=== PATIENT | male | born 1955 | race Caucasian/White ===

== ENCOUNTER → 2018-06-24 | Outpatient (CLI) | payer BC ==
--- NOTE | 2018-06-24 15:59 | CT ---
EXAMINATION TYPE: CT brain wo con DATE OF EXAM: 06/24/2018 HISTORY: Dizziness and headaches x4 months. CT DLP: 1219 mGycm. Automated Exposure Control for Dose Reduction was Utilized. TECHNIQUE: CT scan of the head is performed without contrast. COMPARISON: None. FINDINGS: There is no acute intracranial hemorrhage or midline shift identified. There is diffuse v entricular and sulcal prominence consistent with diffuse age-related cerebral atrophy. Renteria-white mat ter differentiation is fairly well-maintained. The globes are intact and the visualized sinuses are clear. No suspicious opacification mastoid air cells is present. IMPRESSION: No acute intracranial hemorrhage or midline shift. There is mild diffuse age-related ce rebral atrophy noted.
== END ==
LOC: RADCTMAIN 15:37
PROVIDERS: ATTEND Internal Medicine
DX: G31.1 Senile degeneration of brain, not elsewhere classified (principal)
CPT/HCPCS: 70450

== ENCOUNTER → 2019-10-24 | Outpatient (CLI) | payer BC ==
--- NOTE | 2019-10-25 03:05 | CONS ---
CONSULTATION SOURCE OF CONSULT: 10/24/2019 REASON FOR CONSULTATION: Suspected sleep apnea. This is a very pleasant 63-year-old gentleman who follows with Dr. Valdez as his primary care provider. He has a history of gastroesophageal reflux disease, hyperlipidemia, skin disorder. He presents here today with complaints of difficulty sleeping through the night. He has daytime sleepiness. He nods off quickly throughout the day. He has been told he snores per his . He is restless in bed. He wakes up multiple times throughout the night and has trouble getting back to sleep. He does wake up gasping for air at times. He has restless legs. He feels he has similar symptoms compared to his who does have sleep apnea and utilizes CPAP at home. The patient does have a 20 year history of smoking, however, quit 20 years ago. He has been gaining some weight, no significant amount per him. [place] Sleepiness Scale is 10. PAST MEDICAL HISTORY: Includes gastroesophageal reflux disease, hyperlipidemia, skin disorder. PAST SURGICAL HISTORY: Cholecystectomy. ALLERGIES: AMOXICILLIN. MEDICATIONS ARE: Omeprazole 40 mg daily, Zetia 10 mg daily, doxycycline 100 mg daily, Centrum Silver multivitamin. 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 SOCIAL HISTORY: The patient does have a 20 year smoking history, however, quit 20 years ago. Denies excessive alcohol use or illicit drug use. FAMILY HISTORY: Positive for cardiac disease, hyperlipidemia, CVA, arthritis. REVIEW OF SYSTEMS: 14-point review of system was conducted. All negative other than as mentioned in the HPI. PHYSICAL EXAM: Vital signs revealed blood pressure 91/63, heart rate 74, respirations 14, temperature is 97.8. He is 96% O2 saturation on room air. He is 6 feet 0 inches, 205 pounds. BMI 27.8, neck circumference 17. HEAD: Normocephalic, sclerae anicteric. NECK: Supple. Trachea midline. LUNGS: Clear anterior and posteriorly. Heart is regular S1 and S2. ABDOMEN: Soft, nontender. Bowel sounds are present. There is no peripheral edema. No clubbing. No cyanosis. Peripheral pulses are intact. IMPRESSION: 1. Suspected obstructive sleep apnea in a patient who snores and wakes up with periods of apnea and gasping for air and has excessive daytime sleepiness. 2. Gastroesophageal reflux disease. 3. Hyperlipidemia. 4. Skin disorder. PLAN: The patient's case was reviewed and discussed with Dr. Soira who is recommending a sleep study, possibly a home sleep study on this patient for possible sleep apnea. His [place] score is 10. He does have issues with daytime sleepiness and loud snoring, restless legs and waking up gasping for air. If there is significant sleep apnea with elevated AHI, we will see him again for followup regarding a CPAP machine and subsequent titration studies. He verbalizes understanding and is agreeable to the plan. I, the cosigning physician, performed a history and physical examination on the patient. Lung sounds are clear. O2 saturations 96% on room air. I discussed the assessment and plan of care with my nurse practitioner, Sandy Jansen. I attest the above consultation is dictated by her. ANTWAN / CHASN: [id number] /
== END | disposition home or self-care (01) ==
LOC: SLEEP 14:33
PROVIDERS: ATTEND Internal Medicine Critical Care Medicine
DX: R06.83 Snoring (principal); K21.9 Gastro-esophageal reflux disease without esophagitis; E78.5 Hyperlipidemia, unspecified; L98.9 Disorder of the skin and subcutaneous tissue, unspecified; Z87.891 Personal history of nicotine dependence; Z79.899 Other long term (current) drug therapy; Z88.0 Allergy status to penicillin
CPT/HCPCS: 99211

== ENCOUNTER → 2019-10-30 | Outpatient (CLI) | payer BC ==
--- NOTE | 2019-10-30 07:20 | US ---
EXAMINATION TYPE: US abdomen limited DATE OF EXAM: 10/30/2019 COMPARISON: US 09/24/14 CLINICAL HISTORY: 63-year-old male R74.8 elevated liver enzymes. GB surgically removed TECHNIQUE: Multiple sonographic images of the right upper quadrant are obtained. FINDINGS: EXAM MEASUREMENTS: Liver Length: 15.9 cm Gallbladder: Surgically absent CBD: 5.5 mm Right Kidney: 12.0 x 5.7 x 5.5 cm Pancreas: Partially Obscured by bowel gas. Visualized pancreatic neck shows no gross abnormality. Liver: wnl Gallbladder: Surgically absent Evidence for sonographic Yap's sign: No CBD: wnl given postcholecystectomy status Right Kidney: wnl IMPRESSION: Status post cholecystectomy. No biliary ductal dilatation. Suboptimal visualization of the pancreas. Otherwise, no specific abnormality seen.
== END | disposition home or self-care (01) ==
LOC: RADUSWWP 06:48
PROVIDERS: ATTEND Internal Medicine
DX: R74.8 Abnormal levels of other serum enzymes (principal); Z90.49 Acquired absence of other specified parts of digestive tract
CPT/HCPCS: 76705

== ENCOUNTER → 2022-02-23 | Outpatient (CLI) | payer MEDICARE ==
--- NOTE | 2022-02-24 04:17 | MR ---
EXAMINATION TYPE: MR lumbar spine wo con DATE OF EXAM: 02/23/2022 COMPARISON: None HISTORY: RADICULOPATHY, LUMBAR REGION, pain x2 months Multiplanar multiecho imaging of the lumbar spine with no contrast. There is a 2 mm anterior subluxation of L4 in relation L5. There is mild decreased signal in the disk s throughout the lumbar spine. There is facet arthropathy and posterior disc bulging at L4-5. There i s moderately severe L4-5 bony spinal stenosis. No significant stenosis seen at the other levels of th e lumbar spine. There is mild posterior disc bulging seen at L3-4 and L1-2 and T12-L1. There is no lumbar paraspinal mass. The visualized sacroiliac joints appear intact. No focal bone caryl truction. IMPRESSION: There is moderately severe spinal stenosis at L4-5 related to a degenerative first-degree spondylolis thesis with posterior disc bulging and extensive facet arthropathy with ligamentum flavum thickening. Spondylotic changes at the other levels of the lumbar spine without significant spinal stenosis.
== END | disposition home or self-care (01) ==
LOC: RADMRIMAIN 08:58
PROVIDERS: ATTEND Family Medicine
DX: M48.061 Spinal stenosis, lumbar region without neurogenic claudication (principal); M47.26 Other spondylosis with radiculopathy, lumbar region
CPT/HCPCS: 72148

== ENCOUNTER → 2022-03-25 | Day surgery (SDC) | payer MEDICARE ==
[2022-03-24 10:07] VITALS: BMI 26.4
[~2022-03-25] MED LIST: LACTATED RINGERS 1,000 ML IV SCH; PROPOFOL 10 MG/ML 20 ML VIAL IV ONE
--- NOTE | 2022-03-25 07:38 | P.GSHP ---
History of Present Illness H&P Date: 03/25/22 CHIEF COMPLAINT: Colon screen HISTORY OF PRESENT ILLNESS: The patient is a 66-year-old male who presents for colon screen. Lower endoscopy was offered for further evaluation and management. PAST MEDICAL HISTORY: Please see list. PAST SURGICAL HISTORY: Please see list. MEDICATIONS: Please see list. ALLERGIES: Please see list. SOCIAL HISTORY: No illicit drug use FAMILY HISTORY: No reports of Crohn disease or ulcerative colitis. REVIEW OF ORGAN SYSTEMS: CONSTITUTIONAL: No reports of fevers or chills. PHYSICAL EXAM: VITAL SIGNS: Stable GENERAL: Well-developed pleasant in no acute distress. HEENT: No scleral icterus. Extraocular movements grossly intact. Moist buccal mucosa. NECK: Supple without lymphadenopathy. CHEST: Unlabored respirations. Equal bilateral excursions. CARDIOVASCULAR: Regular rate and rhythm. Distal 2+ pulses. ABDOMEN: Soft, nontender, nondistended. MUSCULOSKELETAL: No clubbing, cyanosis, or edema. ASSESSMENT: 1. Colon screen. PLAN: 1. Recommend proceeding with a lower endoscopy Past Medical History Past Medical History: GERD/Reflux, Sleep Apnea/CPAP/BIPAP Additional Past Medical History / Comment(s): low BP with dizziness. History of Any Multi-Drug Resistant Organisms: None Reported Past Surgical History: Cholecystectomy, Orthopedic Surgery Additional Past Surgical History / Comment(s): knee x2. LAP TARYN 09/27/14. COLONOSCOPY Past Anesthesia/Blood Transfusion Reactions: No Reported Reaction Smoking Status: Former smoker - Past Family History Sister(s) Family Medical History: Deep Vein Thrombosis (DVT) Medications and Allergies Home Medications Medication Instructions Recorded Confirmed Type Acetaminophen Tab [Tylenol] 1 tab PO Q6H 09/24/14 03/24/22 History Omeprazole [PriLOSEC] 40 mg PO AC-BRKFST #90 cap 10/24/14 03/24/22 Rx Allergies Allergy/AdvReac Type Severity Reaction Status Date / Time atorvastatin calcium AdvReac joint/muscle Verified 03/24/22 09:52 [From Lipitor] pain
[2022-03-25 08:46] VITALS: RESP 16; TEMP 97.1
--- NOTE | 2022-03-25 09:23 | P.PCN ---
Date of Procedure: 03/25/22 Description of Procedure: PREOPERATIVE DIAGNOSIS: Colonoscopy screening. POSTOPERATIVE DIAGNOSIS: Colonoscopy screening. Diverticulosis, scattered. OPERATION: Colonoscopy to the cecum, ileocecal valve and appendiceal orifice. SURGEON: Mariel Ledezma MD. ANESTHESIA: MAC. INDICATIONS: The patient is a 66-year-old female who presents for colonoscopy screening. Benefits and risks were described and informed consent was obtained. DESCRIPTION OF PROCEDURE: The patient had undergone Sutab prep. The patient had been brought into the operating room and laid in the left lateral decubitus position. After adequate intravenous sedation, the rectum was examined with 2% lidocaine jelly. No external hemorrhoids were encountered. The rectal tone was within normal limits. No lesions were palpated in the rectal vault. An Olympus colonoscope was advanced until the cecum, ileocecal valve and appendiceal orifice were clearly viewed. The prep was good. Moderate sigmoid diverticulosis was encountered. No colonic polyps were found. No evidence of focal colitis was found. Retroflexion of the scope demonstrated grade 1 internal hemorrhoids without active bleeding or inflammation. The colon was desufflated. The patient had tolerated the procedure well. Withdrawal time was over 6 minutes. FINDINGS: Aronchick preparation quality scale 2 (1-5) Internal hemorrhoids, grade 1 No external prolapsed hemorrhoids. No arteriovenous malformations. No adenomatous polyps. No focal colitis. Moderate sigmoid diverticulosis RECOMMENDATIONS: Lower endoscopy in 10 2031 Plan - Discharge Summary Discharge Rx Participant: Yes New Discharge Prescriptions: Continue Acetaminophen Tab [Tylenol] 1 tab PO Q6H Omeprazole [PriLOSEC] 40 mg PO AC-BRKFST #90 cap Discharge Medication List Acetaminophen Tab [Tylenol] 1 tab PO Q6H 09/24/14 [History] Omeprazole [PriLOSEC] 40 mg PO AC-BRKFST #90 cap 10/24/14 [Rx] Follow up Appointment(s)/Referral(s): Mariel Ledezma MD [STAFF PHYSICIAN] - As Needed Patient Instructions/Handouts: Diverticulosis Diet (GEN), Diverticulosis (GEN), *Surgery [facility] - (Anesthesia) Endoscopy Discharge Instructions Activity/Diet/Wound Care/Special Instructions: Repeat colonoscopy in 10 years2031 Discharge Disposition: HOME SELF-CARE
[2022-03-25 09:36] VITALS: BP 124/72; PULSE 68
== END | disposition home or self-care (01) ==
LOC: ORWHC2ENDO 07:57
PROVIDERS: ATTEND Surgery Plastic and Reconstructive Surgery
DX: Z12.11 Encounter for screening for malignant neoplasm of colon (principal); K57.30 Diverticulosis of large intestine without perforation or abscess without bleeding; K64.0 First degree hemorrhoids; K21.9 Gastro-esophageal reflux disease without esophagitis; G47.33 Obstructive sleep apnea (adult) (pediatric); R03.1 Nonspecific low blood-pressure reading; Z90.49 Acquired absence of other specified parts of digestive tract; Z98.890 Other specified postprocedural states; Z87.891 Personal history of nicotine dependence; Z82.49 Family history of ischemic heart disease and other diseases of the circulatory system; Z79.899 Other long term (current) drug therapy; Z88.8 Allergy status to other drugs, medicaments and biological substances
CPT/HCPCS: J2704; G0121

== ENCOUNTER → 2022-09-18 | Outpatient (CLI) | payer MEDICARE, OTHER | END | disposition home or self-care (01) | LOC: LABPAT 09:51 | PROVIDERS: ATTEND Orthopaedic Surgery | DX: Z01.812 Encounter for preprocedural laboratory examination (principal); M43.16 Spondylolisthesis, lumbar region; M48.061 Spinal stenosis, lumbar region without neurogenic claudication; Z22.322 Carrier or suspected carrier of Methicillin resistant Staphylococcus aureus | CPT/HCPCS: 87070 ==

== ENCOUNTER 2022-09-29 10:54 | Inpatient (IN) | payer MEDICARE, OTHER ==
[2022-09-24 16:11] VITALS: BMI 25.4
--- NOTE | 2022-09-28 14:11 | P.HPOR ---
History of Present Illness H&P Date: 09/18/22 .D:Date: 09/18/22 : 10:34am .T:Title: [facility] History and Physical Date of :[birth year] Age: 66 year Height: 6'1" Weight: 198lbs BMI: 26.12 kg/m2 Occupation: Retired VAS: 1 CHIEF COMPLAINT: Pre-operative review of planned lumbar (L4-L5) Decompression and Fusion DOI:Chronic DOS: None Duration of current treatment regiment: >3 months HISTORY : Xrays No new xrays taken in office Trauma or injury No Work-Related No Pain description aching, sharp. Location posterior diffuse Patient notes that their pain radiates to bilateral lower extremities Activity Modification yes Hand Dominance right TREATMENTS COMPLETED: 6 weeks of PT completed? Month and Year of last PT date? 02/2022 Yes How many sessions? 16 Did it help? No Physician recommended home exercise completed? Duration of HEP course: Current yes Patient has trialed the physician directed home exercise program for (without) relief of their symptoms. Medications yes List: Aleve, Tylenol both without relief of his symptoms. Alternative interventions Chiropractic: yes, for approximately 1 month without relief. Massage therapy: No R.I.C.E: yes heat and ice without relief Brace: No inversion table with temporary relief. Injections No RFA: No SUBJECTIVE: Mr. Mejia returns to the office for a pre-operative recheck of their planned lumbar (L4-L5) Decompression and Fusion. Patient reports no improvements to his symptoms since the time of the last appointment. Patient continues to report increasing lumbar pain with no new known injury or trauma to indicate an exact onset of their symptoms. In addition to their lumbar pain, they do report that it radiates into the bilateral lower extremities (right worse than left), associatedwithdiffuse numbness and tingling through the L4-L5 dermatomal distribution. With this the patient does report somewhat transient left lower extremity symptoms but the right lower extremity symptoms are constant. Overall the patient has seen a progressive increase in symptoms since their onset. Mr. Mejia symptoms are exacerbated with standing, ambulation, flexion/extension/twisting, and any high impact movements like walking up and down stairs, due to this they notes that it is increasingly difficult for Mr. Mejia to complete many of their daily tasks. Patient is having severe sleep disturbances as well due to their ongoing pain and associated symptoms. Regarding treatments, the patient has previously trialed all abovementioned treatment modalities without relief of his symptoms. Patient denies trialing any other modalities at this time. For their symptoms, the patient has been taking Aleve and Tylenol all without relief of his symptoms. Otherwise the patient denies any f/c/sob/cp, no incision concerns, no bladder or bowel retention/incontinence, no perineal numbness/tingling, and ambulates independently. HPI: Mr. Mejia last returned to the office on 08/12/22 for a recheck of their low back pain and to further discuss his future treatment course. Patient reports increasing lumbar pain with no new known injury or trauma to indicate an exact onset of their symptoms. In addition to their lumbar pain, they do report that it radiates into the bilateral lower extremities (right worse than left), associatedwithdiffuse numbness and tingling through the L4-L5 dermatomal distribution. With this the patient does report somewhat transient left lower extremity symptoms but the right lower extremity symptoms are constant. Overall the patient has seen a progressive increase in symptoms since their onset. Mr. Mejia symptoms are exacerbated with any standing, ambulation, or high impact movements like walking up and down stairs, due to this they notes that it is increasingly difficult for Mr. Mejia to complete many of their daily tasks. Patient is having severe sleep disturbances as well due to their ongoing pain and associated symptoms. Regarding treatments, the patient has previously trialed all abovementioned treatment modalities without lasting relief of his symptoms. Patient denies trialing any other modalities at this time. Otherwise the patient denies any f/c/sob/cp, no bladder or bowel retention/incontinence, no perineal numbness/tingling, and ambulates independently. Mr. Mejia last presented to the office on 05/25/2022 for an evaluation of their lumbar pain. Patient reports a aching, sharp lumbar pain ongoing for many years that has exacerbated over the last year with no known injury or trauma to indicate an exact onset of their symptoms. In addition to their lumbar pain, they do report that it radiates into the bilateral buttocks and lower extremities, associatedwith numbness and tingling through the legs into the feet. Overall the patient has seen a progressive increase in symptoms since their onset. Mr. Mejia symptoms are exacerbated with prolonged standing and sitting, due to this they notes that it is increasingly difficult for Mr. Mejia to complete many of their daily tasks. Patient is having moderate sleep disturbances as well due to their ongoing pain and associated symptoms. Regarding treatments, the patient has previously trialed all abovementioned treatment modalities without any lasting relief of his symptoms. Patient denies trialing any other modalities at this time. For their symptoms, the patient has been taking Aleve and Tylenol both without any relief of his symptoms. Otherwise the patient denies any f/c/sob/cp, no incision concerns, no bladder or bowel retention/incontinence, no perineal numbness/tingling, and ambulates independently. The patients' past social, medical, family, surgical history, as well as review of systems, have been reviewed. Please refer to the Neurosurgery History and Physical form that has been scanned in to our electronic medical record system. 16 points review of systems completed and as stated in HPI, all other systems reviewed are negative. Social History: Reviewed, see appropriate section of the chart for details. P3 Social History: Smoking: none P3 Alcohol Amount: 0-1 drinks/wk Family History: Reviewed, see appropriate section of the chart for details. P2 Past Medical History: Reviewed, see appropriate section of the chart for details. [id number] Medications: Rx: Aleve 220 mg capsule Ref: 0 Rx: Centrum Ref: 0 Rx: ezetimibe 10 mg tablet Ref: 0 Rx: omeprazole 20 mg tablet,delayed release Ref: 0 Rx: TylenoL 325 mg capsule Ref: 0 Rx: Vitamin D3 Ref: 0 PHYSICAL EXAMINATION: General: Awake, alert, appropriate for age, in no acute distress. HEENT: No unusual neck masses around region of lateral neck triangle, thyroid, supraclavicular groove Heart: Regular rate and rhythm, normal S1, S2 and no murmur/gallop. Lungs: Clear to auscultation bilaterally with no use of accessory muscles. Extremities: Skin warm and dry without acute lesions, coloration, temperature, skin intact, no tenderness or erythema Integument: Hairy patches: ABSENT Dorsal skin dimples: ABSENT Cafe au lait spots: ABSENT Surgical incisions: NONE Palpation: Please see Pain drawing on Intake sheet for further detail. Midline spinal tenderness: Yes, through lumbar region E6 Cervical Tenderness: No E6 Paralumbar tenderness: No E6 Parathoracic tenderness: No E6 Buttocks tenderness: Yes, bilaterally E6 Sacroiliac Tenderness: No POSTURAL and MUSCULO-SKELETAL EVALUATION: Coronal Balance: NEUTRAL Recumbent testing: Patient is able to lay flat on back Sagittal Balance: NEUTRAL Shoulder Profile: LEVEL Pelvic Girdle: LEVEL Neck ROM: UNRESTRICTED Lumbar ROM: RESTRICTED Shoulder ROM: Symmetrical Hip ROM: Symmetrical Knee ROM: Symmetrical Hands: Normal appearance, symmetrical Feet: Normal appearance, Symmetrical VASCULAR STATUS : LEFT RIGHT Wrist Pulses INTACT INTACT Pedal Pulses (Dors. pedis & post.tibialis) INTACT INTACT Color NORMAL NORMAL Edema Absent Absent NEUROLOGIC EXAMINATION: Mental Status:Awake and alert, fully oriented, with normal attention, concentration and memory, and fluent, appropriate speech. Cranial Nerves: I: Olfactory not tested. II: Visual acuity normal, no visual field deficit noted with confrontation. III,IV: Normal pupillary reflexes & intact extraocular movements without nystagmus. V,: Intact symmetrical facial sensation. VII: Intact symmetrical facial motor movement VIII: Hearing intact. IX,X: Intact gag, swallow, & normal voice. XI: Sternocleidomastoid, trapezius function intact. XII: Tongue midline with normal movements. L'hermitte's Sign: Negative / absent Spurling'Sign: Absent bilaterally. Cubital percussion test: Absent bilaterally. Santo-Tinel sign - Carpal region: Absent bilaterally. Straight Leg Raising: Absent bilaterally. Crossed straight leg raise: negative O8 MOTOR EXAM (0-5/5, N/T) UPPER EXTREMITY Shoulder Abduction Biceps Triceps Wrist Extension Hand [employer] Inspector Right 5/5 5/5 5/5 5/5 5/5 5/5 Left 5/5 5/5 5/5 5/5 5/5 5/5 LOWER EXTREMITY Hip Flexion Knee Extension Knee Flexion DF PF EHL FHL Right 5/5 5/5 5/5 4/5 4/5 4/5 5/5 Left 5/5 5/5 5/5 5/5 5/5 5/5 5/5 REFLEXES(0-4/2, NT)Upper Extremity Lower Extremity Right 2 2 Left 2 2 Pathological Reflexes RIGHT LEFT Santo's Absent Absent Clonus Absent Absent Babinski Absent Absent # Indicates mechanical impairment Muscle appearance: Symmetrical, without signs of atrophy or dystrophy. Rectal Tone:Deferred Sensory system (0-4, N/T) Test type RU SHANNAN RL LL Joint-Position 2 2 2 2 Vibration 2 2 2 2 Pain & LT sense 2 2 2 2 Dermatomal Deficit: None None L4-L5 L4-L5 Gait and Functional Evaluation: Ambulatory aids: Independent Romberg's test: Intact bilaterally Toe heel walk / heel-toe walk intact while maintaining satisfactory balance? No Squatting/straightening w/o assistance to a min of 60 degree knee flexion? No Single leg stance: not intact Trendelenburg sign negative bilaterally Hand and finger dexterity intact bilaterally? yes Disdiadochokinesis examination negative bilaterally? yes RADIOGRAPHIC STUDIES: XRay (multiview) taken on 05/25/22 obtained at [facility] of Lumbar,Spine and Pelvis: Images reviewed with the patient. These demonstrate L4-5 Grade I mobile spondylolisthesis with about 3 mm of translation of F/E films. There is pars elongation as well as facet arthropathy from L4-S1. There is well maintained disc height at L5S1. There are no fractures noted. There is spondylosis at L1- 2 with disc height loss. There are no lesions noted. AP pelvis shows level congruent pelvis w/o fracture MRI scan from 02/23/2022 obtained at [facility] of Lumbar Spine: Images reviewed with the patient demonstrate again L4-5 grade I spondylolisthesis that is mobile. There is large disc bulge associated causing severe b/l foraminal stenosis there is a facet cyst posteriorly along with hypertrophy of ligamentum that contribute to severe central stenosis as well. There are boggy facets at L4-5. L5-S1 shows some disc dessication that is moderate. There is minimal stenosis at this level. There is spondylosis from L1-2 with severe disc collapse and likely old HNP that is now a disc osteophyte complex causing mild stenotic features. No fracture. No lesions. Modic endplate changes at levels described. IMPRESSION: It was my pleasure to have seen and examined Arturo. I reviewed the patient's clinical syndrome, physical findings, and imaging studies during the appointment today. It is my impression that the patient has a diagnosis of. 1. L4-L5 Grade 1 spondylolisthesis 2. L4-L5 stenosis 3. Neurogenic claudication 4. bilateral lower extremity radiculopathy I outlined the natural course history without intervention and various interventional options. PLAN: Based on my findings I suggest the following course of action: -I discussed treatment options with the patient, including operative and non-operative options, and they have elected to proceed with the following surgical procedure: lumbar (L4-L5) Decompression and Fusion The indications, risks, benefits, and alternatives to surgery were discussed with the patient and family at length. Specifically (but not limited to) the risks of infection, stiffness, recurrence of symptoms, need for revision surgery, local numbness, neurovascular injury, and blood clots were discussed. The patient's questions were answered.The patient would like to proceed with the surgery. - Advised patient to continue with supplements, health maintenance, and home exercise programs. Patient expressed understanding and will continue with these modalities. Spine Surgery Risk Review Mr. Mejia is presenting for evaluation of low back pain. It was my pleasure to have seen and examined Mr. Mejia. In our visit today we have had a chance to go over subjective complaints, physical examination findings and treatments including the natural course history without intervention and various interventional options. The patients imaging demonstrates: XRay (multiview) taken on 05/25/22 obtained at [facility] Lumbar,Spine and Pelvis: Images reviewed with the patient. These demonstrate L4-5 Grade I mobile spondylolisthesis with about 3 mm of translation of F/E films. There is pars elongation as well as facet arthropathy from L4-S1. There is well maintained disc height at L5S1. There are no fractures noted. There is spondylosis at L1-2 with disc height loss. There are no lesions noted. AP pelvis shows level congruent pelvis w/o fracture MRI scan from 02/23/2022 obtained at [facility] of Lumbar Spine: Images reviewed with the patient demonstrate again L4-5 grade I spondylolisthesis that is mobile. There is large disc bulge associated causing severe b/l foraminal stenosis there is a facet cyst posteriorly along with hypertrophy of ligamentum that contribute to severe central stenosis as well. There are boggy facets at L4-5. L5-S1 shows some disc dessication that is moderate. There is minimal stenosis at this level. There is spondylosis from L1-2 with severe disc collapse and likely old HNP that is now a disc osteophyte complex causing mild stenotic features. No fracture. No lesions. Modic endplate changes at levels described. On physical exam, Mr. Mejia demonstrates severely restricted lumbar ROM with bilateral lower extremity radiculopathy. Furthermore he does demonstrate bilateral lower extremity L4-L5 dermatomal deficit. Overall functional and gait testing is limited due to the severity of his symptoms. I have explained to the patient that as their condition progresses it will cause further neurological deficits and eventual paralysis. Based on the patients imaging, physical exam, and the rapid progression and disabling nature of their symptoms, at this time I recommend surgery in the form of a: lumbar (L4-L5) Decompression and Fusion . I discussed the risk and benefits of this procedure at length with Mr. Mejia. The patient agreed to considered pursuing the procedure abovementioned. Prior to surgery, she should follow up with her PCP (Cardio, ID, IM etc) for clearance. Questions were invited and answered, and the patient wishes to proceed as outlined below. Currently, I am recommendin.lumbar (L4-L5) Decompression and Fusion 2.Follow up with PCP for surgical clearance 3.Review of surgical risks and benefits as well as an educational packet on the proposed surgical procedure. Risks: All surgical procedures come with inherent risks, including those related to positioning, anesthesia, intraoperative findings, and postoperative complications. It is important to understand that surgery does not come with any guarantee of a successful outcome as complications and adverse events are always possible. The patient was given a handout in office today discussing the surgical procedure and risks associated with the intervention, both of which were discussed with the patient. These risks include but are not limited to the following: * Experiencing same, different or even worse symptoms in back, neck, arms, or legs compared to before surgery. Requiring further surgery or other forms of treatment presently or at some time in the future at same or other levels of the intended spine surgery. On an extreme but fortunately relatively rare basis severe complication such as blindness, stroke, heart attack, temporary and/or permanent nerve injury, paralysis, coma, or may occur, sometimes without known explanation. Surgical complications may include but are not limited to risk of infection, fluid accumulation in the surgical dissection site, including a seroma or hematoma, that requires additional surgery, wound drainage, bleeding, new numbness or weakness, vision changes/loss, spinal fluid leakage, non-healing and/or infected incision, headaches, difficulty or inability to swallow, hoarseness, hemopneumothorax, pneumothorax, impotence, retrograde ejaculation, vaginal dryness; injury to nerves, spinal cord, blood vessels, lymphatics or other vital organs (i.e., bowel injury, injury to the great vessels); heterotopic bone formation; complications related to the hardware such as screws, rods, cages including misplaced hardware, device failure, instrumentation at the wrong spine level, hardware fracture/breakage, or hardware loosening; vertebral failure of the spinal column above or below the newly placed hardware; retained surgical instrumentations or devices and the need for further surgery. * Medical risks of the planned spine surgery include but are not limited to generalized Infections to the whole body or local areas outside of the surgical site (sepsis), heart attack, bleeding, anaphylaxis, meningitis, seizure, epilepsy, hearing loss, burn milner, laceration of the head or other areas of the body, bruising, hypersensitivity of the skin, bladder over distension; allergic reaction; shoulder injury related to positioning; fat, blood and air clots to other areas of the body like heart, lungs, brain; failure of internal organs such as lungs, kidneys, liver and excessive bleeding. If blood transfusions are necessary, note that transfusions may cause intolerance reactions such as anaphylaxis or other complex reactions. Despite best efforts, the results of spine surgery might not heal in terms of bone, soft tissues such as skin, fascia, ligaments, and joints. Additionally, in order to achieve best possible results, spine surgery may be carried out beyond the initially planned levels and involve decompression, fusion including insertion of hardware at levels other than the original intended area of surgical interest change some portions of the procedure in order to ensure the best possible outcomes. With spine surgery and spinal fusion, there are different off label uses of instrumentation (devices, implants and hardware) as well as biological substances (bone morphogenic proteins, demineralized bone matrix) as well as using extra bone from allograft sources (i.e. cadaver bone) or autograft (iliac crest bone, ribs, or the spine itself). The patient has been given information about these practices and their inherent risks and benefits. [facility] is an educational center that serves as a training facility for neurosurgical and orthopedic [employer] COUNSELORS and Nursing students. Physician assistants are medically trained surgical providers who function in the outpatient, inpatient, and operating room setting under the direct supervision of the attending surgeon. [facility] has multiple operating rooms with single and overlapping rooms running daily. They currently function under the required guidelines as produced by the [facility] Finance Committee with regards to the overlapping rooms and will continue to comply with changes to this policy as they occur. The requirements include and are complied with as follows: (1) the critical portions of the overlapping rooms will not occur at the same time, (2) the attending physician will be physically present during the critical portions of the procedure and immediately available during the entire case, and (3) a back-up attending is designated should the primary attending not be immediately available. The patient has had a chance to review all the listed information, has been given print outs detailing this information, and has had all his/her questions answered to their satisfaction. It was my pleasure to have seen and examined Mr. Mejia. In our visit today we have had a chance to go over my understanding of our patient's current condition, the natural course history without intervention and various interventional options. Questions were invited and answered, and the patient wishes to proceed as outlined above. I have seen and examined the patient for 25 minutes and we have spent more than 50% of the time in repeat and detailed counseling about the patient's condition, its natural course history with out and as much as can be predicted with surgery and re-review of various surgical treatment options. In conclusion, Mr. Mejia requested we proceed with the above suggested surgery and are willing to accept risks and limitations of the suggested surgery as nature of the disease process and our best attempts at treatment for the condition. Thank you again for allowing us to be part of your patient's care. Please don't hesitate to contact me if you have any further questions. Signed and authenticated by: Follow-up: 2 weeks post-op Patient Education: (Informational booklet, instructions, etc) given at today's appointment: Yes .ED:Patient Education: Y Plan at next visit: review potentia surgical intervention Medications Reviewed: YES In our visit today Mr. Mejia and I have had a chance to go over my understanding of the patient's current condition, the natural course history without intervention and various interventional options. Questions were invited and answered, and the patient wishes to proceed as outlined above. I will be sure to keep you updated afterMr. Mejia returns here for further follow-up. Thank you again for your referral. Please do not hesitate to contact me if you have any further questions. Signed and authenticated by: Renzo Carpenter [facility] [id number] [place] [address] This message is confidential, intended only for the named recipient(s) and may contain information that is privileged or exempt from disclosure under applicable law. If you are not the intended recipient(s), you are notified that the dissemination, distribution or copying of this information is strictly prohibited. If you received this message in error, please notify the sender then delete this message. Patient verbalizes understanding of the information discussed. The above note was initiated by Renzo Michel, physician recording health assistant for Dr. Renzo Rios. This note has been reviewed by Dr. Rios, who has made his personal changes and impressions for this document. # SIGNED BY Renzo Rios (GOO)09/21/2022 04:37PM Past Medical History Past Medical History: GERD/Reflux Additional Past Medical History / Comment(s): Low BP/dizziness. History of Any Multi-Drug Resistant Organisms: None Reported Past Surgical History: Cholecystectomy, Orthopedic Surgery Additional Past Surgical History / Comment(s): Bilateral knee surgery, colonoscopy. Past Anesthesia/Blood Transfusion Reactions: No Reported Reaction Past Psychological History: No Psychological Hx Reported Smoking Status: Former smoker Past Alcohol Use History: Occasional Additional Past Alcohol Use History / Comment(s): Quit smoking 20 yrs ago. Additional Drug Use History / Comment(s): CBD oil. - Past Family History Sister(s) Family Medical History: Pulmonary Embolus Medications and Allergies Home Medications Medication Instructions Recorded Confirmed Type Ascorbic Acid [Vitamin C] 1,000 mg PO BID 09/24/22 09/24/22 History Cholecalciferol [Vitamin D3 (125 125 mcg PO DAILY 09/24/22 09/24/22 History Mcg = 5000 Iu)] Ezetimibe [Zetia] 10 mg PO DAILY 09/24/22 09/24/22 History Omeprazole Magnesium [PriLOSEC OTC] 20 mg PO DAILY PRN 09/24/22 09/24/22 History Zinc Gluconate [Zinc] 50 mg PO DAILY 09/24/22 09/24/22 History Allergies Allergy/AdvReac Type Severity Reaction Status Date / Time atorvastatin calcium AdvReac joint/muscle Verified 09/24/22 16:01 [From Lipitor] pain Penicillins AdvReac Abdominal Verified 09/24/22 16:01 Pain Physical Examination Osteopathic Statement: *. No significant issues noted on an osteopathic structural exam other than those noted in the History and Physical/Consult.
[~2022-09-29 10:54] MED LIST changes: +ACETAMINOPHEN TAB 500 MG TAB PO PRN; +DEXAMETHASONE SOD PHOSPHATE 4 MG/ML 1 ML VIAL IV ONE; +GABAPENTIN 300 MG CAP PO PRN; +HYDROmorphone 0.5 MG/0.5 ML SYRINGE IVP PRN; -LACTATED RINGERS 1,000 ML IV SCH; +LIDOCAINE 1% (10MG/ML) FOR IV START INTRADERMA PRN; +MIDAZOLAM 2 MG/2 ML VIAL IV PRN; +ONDANSETRON 4 MG/2 ML VIAL IVP ONE; +ONDANSETRON 4 MG/2 ML VIAL IVP PRN; -PROPOFOL 10 MG/ML 20 ML VIAL IV ONE; +TRANEXAMIC ACID IN NACL,ISO-OS 1,000 MG in SALINE 1 100ML.BAG IVPB PRN
[2022-09-29] MEDS: LACTATED RINGERS 1,000 ML IV SCH ×2 (11:55→12:11)
[2022-09-29] MEDS ORDERED: SUCCINYLCHOLINE CHLORIDE 200 MG/10 ML VIAL IV ONE (14:03)
[2022-09-29] MEDS ORDERED: KETAMINE 10 MG/ML 20 ML VIAL ONE (14:03)
[2022-09-29] MEDS ORDERED: LIDOCAINE 2% INJ 20 MG/ML (2 ML VIAL) ONE (14:03)
[2022-09-29] MEDS ORDERED: MIDAZOLAM 2 MG/2 ML VIAL ONE (14:03)
[2022-09-29] MEDS ORDERED: PHENYLEPHRINE-0.9% NACL SYG 1,000 MCG/10 ML SYRINGE ONE (14:03)
[2022-09-29] MEDS ORDERED: ePHEDrine 50 MG/ML 1 ML VIAL ONE (14:03)
[2022-09-29] MEDS ORDERED: PROPOFOL 10 MG/ML 20 ML VIAL IV ONE (14:03)
[2022-09-29] MEDS ORDERED: TRANEXAMIC ACID IN NACL,ISO-OS 1,000 MG/100 ML BAG ONE (14:03)
[2022-09-29] MEDS ORDERED: WATER FOR INJECTION, STERILE 10 ML VIAL IV ONE (14:03)
[2022-09-29] MEDS ORDERED: GLYCOPYRROLATE 0.2 MG/ML 2 ML VIAL ONE (14:03)
[2022-09-29] MEDS ORDERED: NEOSTIGMINE 1 MG/ML 10 ML VIAL ONE (14:03)
[2022-09-29] MEDS ORDERED: fentaNYL (PF) 50 MCG/ML 2 ML AMP ONE (14:03)
[2022-09-29] MEDS ORDERED: ROCURONIUM 10 MG/ML (5 ML VIAL) IV ONE (14:03)
[2022-09-29] MEDS ORDERED: THROMBIN (BOVINE) 5,000 UNIT VIAL TOPICAL ONE (14:08)
[2022-09-29] MEDS ORDERED: GELATIN SPONGE,ABSORB (LARGE) 1 EACH SPONGE TOPICAL ONE (14:08)
[2022-09-29] MEDS ORDERED: BUPIVACAIN-EPI 0.25%-1:200,000 30 ML VIAL SQ ONE (14:08)
[2022-09-29] MEDS ORDERED: ceFAZolin 3,000 MG in SODIUM CHLORIDE 0.9% IRRIGATIO 3,000 ML IRRIGATION ONE (14:50)
[2022-09-29] MEDS ORDERED: GENTAMICIN 80 MG in SODIUM CHLORIDE 0.9% IRRIGATIO 3,000 ML IRRIGATION ONE (14:50)
[2022-09-29] MEDS ORDERED: LACTATED RINGERS 1,000 ML IV ONE ×2 (15:13→17:31)
[2022-09-29] MEDS ORDERED: HYDROmorphone 0.5 MG/0.5 ML SYRINGE IVP PRN (17:11)
[2022-09-29] MEDS ORDERED: SENNOSIDES-DOCUSATE SODIUM 1 EACH TAB PO PRN (17:11)
[2022-09-29] MEDS ORDERED: HYDROmorphone 1 MG/ML 1 ML SYRINGE IVP PRN (17:11)
[2022-09-29] MEDS ORDERED: ONDANSETRON 4 MG/2 ML VIAL IVP PRN (17:11)
[2022-09-29] MEDS ORDERED: CYCLOBENZAPRINE 5 MG TAB PO PRN (17:11)
[2022-09-29] MEDS ORDERED: MAGNESIUM HYDROXIDE 2,400 MG/10 ML CUP PO PRN (17:11)
--- NOTE | 2022-09-29 18:38 | FL ---
Intraoperative/procedural fluoroscopic services were provided. Total fluoroscopy time is 47 seconds w ith a total of 0 submitted images to PACS. Please see the operative/procedural note for further detai ls.
--- NOTE | 2022-09-29 20:15 | CT ---
EXAMINATION TYPE: CT lumbar spine wo con DATE OF EXAM: 09/29/2022 COMPARISON: None HISTORY: post op lumbar fusion. CT DLP: 1299.6 mGycm Automated exposure control for dose reduction was used. Images obtained from the level of T10-S4 vertebra with no contrast. The lumbar vertebrae have normal alignment. There is kishan and screws fusing posteriorly the lumbar spi ne at L4-5. There is disc prosthesis at L4-5. Components appear in good position. Exam limited by met al artifact. There is bilateral lower lobe pulmonary patchy airspace infiltrates and atelectasis. No lumbar paraspinal mass. There is posterior skin carlos. No pathologic fluid collection. There is laminectomy defect. The sacroiliac joints are intact. IMPRESSION: Postsurgical changes. No complicating process seen.
[2022-09-29] MEDS: HYDROcodone/APAP 5-325MG 1 EACH TAB PO PRN (20:16)
[2022-09-29] MEDS: GABAPENTIN 300 MG CAP PO SCH (21:38)
[2022-09-30] MEDS: HYDROcodone/APAP 5-325MG 1 EACH TAB PO PRN ×2 (02:14→19:49)
[2022-09-30 05:27] LABS: Basophils % (A) 0 %; Eosinophils % (A) 0 %; HCT 39.8 % (39.0-53.0); HGB 13.1 gm/dL (13.0-17.5); Lymphocytes # (A) 1.6 k/uL (1.0-4.8); Lymphocytes % (A) 11 %; MCH 28.9 pg (25.0-35.0); MCV 87.6 fL (80.0-100.0); Mean Platelet Volume 6.8; Monocytes # (A) 0.8 k/uL (0-1.0); Monocytes % (A) 5 %; Neutrophils % (A) 82 %; Platelet Count 244 k/uL (150-450); RBC 4.54 m/uL (4.30-5.90); RDW 13.3 % (11.5-15.5); WBC 14.6 k/uL (3.8-10.6)
[2022-09-30 05:37] LABS: African American GFR (CKD) >90 (>60 ml/min/1.73 sqM); Anion Gap 4 mmol/L; Blood Urea Nitrogen 22 mg/dL (9-20); Calcium 8.2 mg/dL (8.4-10.2); Carbon Dioxide 29 mmol/L (22-30); Chloride 102 mmol/L (98-107); Glucose 108 mg/dL (74-99); Non-African American GFR(CKD) >90 (>60 ml/min/1.73 sqM); Potassium 4.3 mmol/L (3.5-5.1); Sodium 135 mmol/L (137-145)
[2022-09-30] MEDS: GABAPENTIN 300 MG CAP PO SCH ×2 (08:18→19:49)
[2022-09-30] MEDS: EZETIMIBE 10 MG TAB PO SCH (08:18)
[2022-09-30] MEDS: HYDROcodone/APAP 7.5-325MG 1 EACH TAB PO PRN (08:18)
[2022-09-30] MEDS: CHOLECALCIFEROL 125 MCG (5000 IU) TABLET PO SCH (08:19)
[2022-09-30] MEDS: ZINC SULFATE 220 MG CAP PO SCH (08:19)
[2022-09-30] MEDS: ASCORBIC ACID 500 MG TAB PO SCH ×2 (08:19→19:49)
--- NOTE | 2022-09-30 08:35 | P.PN ---
Subjective Progress Note Date: 09/30/22 Principal diagnosis: Lumbar stenosis Spondylolisthesis L4 onto L5 Patient seen and examined this morning. Patient was resting in bed. He has complaint of increased pain with activity. Medications will be reviewed. Surgical incision is clean dry and intact. Hemovac is present and patent, output of 110 mL overnight. Patient has not been up since procedure. Informed patient that physical therapy will be in to work with him today. He should be up to the chair with all meals. Patient verbalizes understanding. Patient denies numbness or tingling to bilateral lower extremities. Nino catheter may be discontinued today. Patient has been afebrile, denies nausea/vomiting, or chest pain Objective - Vital Signs Vital signs: Vital Signs Temp 97.9 F 09/30/22 07:15 Pulse 92 09/30/22 07:15 Resp 18 09/30/22 07:15 BP 94/60 09/30/22 07:15 Pulse Ox 94 L 09/30/22 07:15 FiO2 Intake & Output 09/29/22 09/30/22 09/30/22 18:59 06:59 18:59 Intake Total 3402 Output Total 650 935 Balance 2752 -935 Weight 88.2 kg 88.2 kg Intake: IV 3402 Output: Drainage 110 Back 110 Urine 250 825 Estimated Blood Loss 400 Other: Voiding Method Indwelling Catheter - Exam Physical Examination General: The patient is awake and alert, in no acute distress Skin: Skin is warm and dry with no obvious rashes or lesions. Hairy patches absent, no dorsal skin dimples, no cafe au lait spots. Surgical incision to lumbar, dressing clean dry and intact. Hemovac present and patent. Eye: Pupils are equal, round and reactive to light, extra-ocular movements are intact; there is normal conjunctiva bilaterally. Neck: The neck is supple, there is no tenderness and ROM intact. Cardiovascular: There is a regular rate and rhythm. No murmur, rub or gallop is appreciated. Respiratory: Lungs are clear to auscultation, respirations are non-labored, breath sounds are equal. Gastrointestinal: Soft, non-distended, non-tender abdomen. Back: There is no tenderness to palpation in the midline, paralumbar, parathoracic or buttocks region. There is no obvious deformity . Musculoskeletal: ROM limited secondary to pain and stiffness from surgical procedure. Muscle strength in all major muscle groups of bilateral upper extremities 5/5, bilateral lower extremities 4/5. Neurological: CN 2-12 intact. There are no obvious motor or sensory deficits. Movement and coordination equal and intact. Sensory exam to light touch intact C5-T1 and intact from L2-S1. Reflexes 2/4 in bilateral upper and lower extremities. Negative Hoffmans, babinski, and clonus signs. Psychiatric: Cooperative, appropriate mood & affect, normal judgment. - Labs CBC & Chem 7: 09/30/22 04:48 09/30/22 04:48 Labs: Abnormal Lab Results - Last 24 Hours (Table) 09/30/22 09/30/22 Range/Units 04:48 04:48 WBC 14.6 H (3.8-10.6) k/uL Neutrophils # 12.0 H (1.3-7.7) k/uL Sodium 135 L (137-145) mmol/L BUN 22 H (9-20) mg/dL Glucose 108 H (74-99) mg/dL Calcium 8.2 L (8.4-10.2) mg/dL Assessment and Plan Assessment: Postop day 1 L4-L5 PLIF Lumbar stenosis Spondylolisthesis L4 onto L5 Plan: -Appreciate speech correction consultant and team management. -Activity: Ambulate QID, OOB all meals, up and about, limit lifting bending twisting to less than 5 lbs. Use walker or cane if needed for stability. -Daily PT/OT, increase ambulation strength and balance. -LSO Brace when up and about, not needed in bed or chair -Pain control: Adequate at this time -Meds: reviewed -GI ppx: senna, Miralax -DC nino when up and about, bedside commode if needed -DVT PPX: OK to restart Heparin tonight -Hygiene: Shower today. Maintain dressing clean and dry. Meticulous cleaning after BMs away from the incision site -Drains: Maintain for now. DC later today pending out put and PT -Encourage IS 10x/hr -Dispo: Anticipate discharge home tomorrow with homecare *I reviewed and discussed this case with my attending Dr. Rios, whom has reviewed this chart and films and is in agreement with assessment and plan of care as outlined above. I have personally seen and examined the patient, performed the documentation and the assessment and plan as written. Number of minutes spent on the visit: 20m.
[2022-09-30] MEDS ORDERED: PANTOPRAZOLE 40 MG TABLET PO PRN (09:00)
--- NOTE | 2022-09-30 12:27 | P.CONS ---
History of Present Illness - Reason for Consult Consult date: 09/30/22 - History of Present Illness History of present illness; patient is 66-year-old gentleman who presented to the hospital because of for elective procedure L4-L5 decompression and fusion with neurosurgery. Patient has been seeing neurosurgery outpatient for lumbar pain for the last couple of years but had exacerbated over the last year. Patient also states that pain radiates into the bilateral lower extremities (right worse than left), associatedwithdiffuse numbness and tingling. Patient discussed with surgery and plan was for patient to undergo L4-L5 decompression. Postoperatively the medicine team was consulted for medical management REVIEW OF SYSTEMS: CONSTITUTIONAL: No fever, no malaise, no fatigue. HEENT: No recent visual problems or hearing problems. Denied any sore throat. CARDIOVASCULAR: No chest pain, orthopnea, PND, no palpitations, no syncope. PULMONARY: No shortness of breath, no cough, no hemoptysis. GASTROINTESTINAL: No diarrhea, no nausea, no vomiting, no abdominal pain. NEUROLOGICAL: No headaches, no weakness, no numbness. HEMATOLOGICAL: Denies any bleeding or petechiae. GENITOURINARY: Denies any burning micturition, frequency, or urgency. MUSCULOSKELETAL/RHEUMATOLOGICAL: Back pain at the surgery site ENDOCRINE: Denies any polyuria or polydipsia. The rest of the 14-point review of systems is negative. PHYSICAL EXAMINATION: GENERAL: The patient is alert and oriented x3, not in any acute distress. Well developed, well nourished. HEENT: Pupils are round and equally reacting to light. EOMI. No scleral icterus. No conjunctival pallor. Normocephalic, atraumatic. No pharyngeal erythema. No thyromegaly. CARDIOVASCULAR: S1 and S2 present. No murmurs, rubs, or gallops. PULMONARY: Chest is clear to auscultation, no wheezing or crackles. ABDOMEN: Soft, nontender, nondistended, normoactive bowel sounds. No palpable organomegaly. MUSCULOSKELETAL: No joint swelling or deformity. EXTREMITIES: No cyanosis, clubbing, or pedal edema. NEUROLOGICAL: Gross neurological examination did not reveal any focal deficits. SKIN: Lumbar area surgical incision seen, drain in place Assessment and plan L4-L5 Grade 1 spondylolisthesis status post L4-L5 decompression and fusion L4-L5 stenosis Neurogenic claudication bilateral lower extremity radiculopathy Plan; Continue to monitor vital signs Encourage ambulation PT and OT evaluation Continue pain management per neurosurgery Continue DVT prophylaxis per neurosurgery Past Medical History Past Medical History: GERD/Reflux Additional Past Medical History / Comment(s): Low BP/dizziness. History of Any Multi-Drug Resistant Organisms: None Reported Past Surgical History: Cholecystectomy, Orthopedic Surgery Additional Past Surgical History / Comment(s): Bilateral knee surgery, colonoscopy 2x. Past Anesthesia/Blood Transfusion Reactions: No Reported Reaction Past Psychological History: No Psychological Hx Reported Smoking Status: Former smoker Past Alcohol Use History: Occasional Additional Past Alcohol Use History / Comment(s): Quit smoking 20 yrs ago. Past Drug Use History: None Reported Additional Drug Use History / Comment(s): CBD oil. - Past Family History Sister(s) Family Medical History: Pulmonary Embolus Medications and Allergies Home Medications Medication Instructions Recorded Confirmed Type Ascorbic Acid [Vitamin C] 1,000 mg PO BID 09/24/22 09/29/22 History Cholecalciferol [Vitamin D3 (125 125 mcg PO DAILY 09/24/22 09/29/22 History Mcg = 5000 Iu)] Ezetimibe [Zetia] 10 mg PO DAILY 09/24/22 09/29/22 History Omeprazole Magnesium [PriLOSEC OTC] 20 mg PO DAILY PRN 09/24/22 09/29/22 History Zinc Gluconate [Zinc] 50 mg PO DAILY 09/24/22 09/29/22 History Allergies Allergy/AdvReac Type Severity Reaction Status Date / Time atorvastatin calcium AdvReac joint/muscle Verified 09/29/22 11:26 [From Lipitor] pain Penicillins AdvReac Abdominal Verified 09/29/22 11:26 Pain Physical Exam Vitals: Vital Signs Temp Pulse Pulse Resp BP BP Pulse Ox 09/30/22 09:25 93 L 09/30/22 07:15 97.9 F 92 18 94/60 94 L 09/30/22 02:08 98.1 F 92 18 97/55 94 L 09/29/22 22:55 90 102/65 96 09/29/22 22:45 87 97/65 09/29/22 22:30 84 105/67 96 09/29/22 22:15 90 113/73 97 09/29/22 22:00 83 107/69 97 09/29/22 21:45 80 101/62 09/29/22 21:30 71 99/62 09/29/22 21:15 42 L 96/64 87 L 09/29/22 21:00 97.5 F L 90 18 99/66 86 L 09/29/22 18:53 83 16 101/61 94 L 09/29/22 18:38 82 16 120/59 95 09/29/22 18:23 94 16 121/56 100 09/29/22 18:08 94 16 103/69 100 09/29/22 17:53 96.9 F L 98 16 78/59 100 Intake and Output 09/29/22 09/30/22 09/30/22 22:59 06:59 14:59 Intake Total 1350 Output Total 650 935 500 Balance 700 -935 -500 Intake: IV 1350 Output: Drainage 110 Back 110 Urine 250 825 500 Uretheral ([place]) 500 Estimated Blood Loss 400 Other: Voiding Method Indwelling Catheter Weight 88.2 kg Results CBC & Chem 7: 09/30/22 04:48 09/30/22 04:48 Labs: Abnormal Lab Results - Last 24 Hours (Table) 09/30/22 09/30/22 Range/Units 04:48 04:48 WBC 14.6 H (3.8-10.6) k/uL Neutrophils # 12.0 H (1.3-7.7) k/uL Sodium 135 L (137-145) mmol/L BUN 22 H (9-20) mg/dL Glucose 108 H (74-99) mg/dL Calcium 8.2 L (8.4-10.2) mg/dL
[2022-10-01] MEDS: HYDROcodone/APAP 7.5-325MG 1 EACH TAB PO PRN (06:10)
[2022-10-01 08:22] VITALS: BP 116/64; PULSE 100; RESP 16; TEMP 98.5
[2022-10-01] MEDS: CHOLECALCIFEROL 125 MCG (5000 IU) TABLET PO SCH (08:29)
[2022-10-01] MEDS: EZETIMIBE 10 MG TAB PO SCH (08:29)
[2022-10-01] MEDS: ZINC SULFATE 220 MG CAP PO SCH (08:29)
[2022-10-01] MEDS: ASCORBIC ACID 500 MG TAB PO SCH (08:29)
[2022-10-01] MEDS: GABAPENTIN 300 MG CAP PO SCH (08:29)
--- NOTE | 2022-10-01 08:31 | P.PN ---
Subjective Progress Note Date: 10/01/22 Principal diagnosis: Lumbar stenosis Spondylolisthesis L4 onto L5 Patient seen and examined this morning. Patient sitting up in chair with LSO brace. Surgical incision is clean dry and intact, hemovac removed and dressing changed. Patient states he has been up with therapy and tolerating activity well. He states he feels comfortable with discharge home with homecare. Patient denies numbness or tingling to bilateral lower extremities. Patient has been afebrile, denies nausea/vomiting, or chest pain Objective - Vital Signs Vital signs: Vital Signs Temp 98.5 F 10/01/22 07:35 Pulse 100 10/01/22 07:35 Resp 16 10/01/22 07:35 BP 116/64 10/01/22 07:35 Pulse Ox 93 L 10/01/22 07:35 FiO2 Intake & Output 09/30/22 10/01/22 10/01/22 18:59 06:59 18:59 Intake Total 118 Output Total 520 900 Balance -402 -900 Intake: Oral 118 Output: Drainage 20 Back 20 Urine 500 900 Uretheral ([place]) 500 Other: Voiding Method Toilet Urinal # Voids 2 - Labs CBC & Chem 7: 09/30/22 04:48 09/30/22 04:48 Assessment and Plan Assessment: Postop day 2: L4-L5 PLIF Lumbar stenosis Spondylolisthesis L4 onto L5 Plan: -Appreciate talent consultant and team management. -Activity: Ambulate QID, OOB all meals, up and about, limit lifting bending twisting to less than 5 lbs. Use walker or cane if needed for stability. -Daily PT/OT, increase ambulation strength and balance. -LSO Brace when up and about, not needed in bed or chair -Pain control: Adequate at this time -Meds: reviewed -GI ppx: senna, Miralax -DVT PPX: heparin -Hygiene: Shower today. Maintain dressing clean and dry. Meticulous cleaning after BMs away from the incision site -Encourage IS 10x/hr -Dispo: Anticipate discharge home today with homecare *I reviewed and discussed this case with my attending Dr. Rios, whom has reviewed this chart and films and is in agreement with assessment and plan of care as outlined above. I have personally seen and examined the patient, performed the documentation and the assessment and plan as written. Number of minutes spent on the visit: 20m.
--- NOTE | 2022-10-01 08:38 | P.DS ---
Providers Date of admission: 10/01/22 07:57 Expected date of discharge: 10/01/22 Attending physician: Renzo Rios DO Consults: 09/29/22 17:15 Consult Physician Routine Consulting Provider: Hector Guerra Reason/Comments: Medical Management Do you want consulting provider notified?: Yes Primary care physician: Jayy Brown [facility] Course: Hospital Course: The patient was evaluated preoperatively and found to have the diagnosis of lumbar stenosis, spondylolisthesis L4 and L5. They underwent appropriate preoperative care and were willing to undergo the intended procedure. They underwent a successful L4-L5 posterior lateral interbody fusion, were recovered appropriately and sent to the floor. While on the floor they worked with physical therapy, occupational therapy and nursing to enhance their recovery experience. Their pain was well controlled through their stay and they were started on appropriate medications, DVT ppx modalities, activity and dietary needs. Daily labs were monitored closely, and transfusions were only used when necessary. Medicine as well as other consulting services have made their input a nd have helped with our team approach and multidisciplinary care. PT milestones have been met and passed and they have made the recommendation of home with home care for this patient and treating providers agree with this care path. The patient will be discharged home with appropriate medications, instructions and follow-up information and in stable condition. Patient Condition at Discharge: Good Plan - Discharge Summary Discharge Rx Participant: Yes New Discharge Prescriptions: New Sulfamethox-Tmp 800-160Mg [Bactrim DS 800-160 mg] 1 tab PO Q12HR 3 Days #6 tab Sennosides/Docusate Sodium [Senna Plus 8.6-50 mg Tablet] 1 each PO DAILY PRN #20 tablet PRN Reason: Constipation Cyclobenzaprine [Flexeril] 5 mg PO TID PRN #45 tablet PRN Reason: Muscle Spasm Gabapentin 300 mg PO TID #90 cap HYDROcodone/APAP 5-325MG [[place]ore[place] 5-325] 1 - 2 tab PO Q6HR PRN #56 tab PRN Reason: Pain No Action Ezetimibe [Zetia] 10 mg PO DAILY Cholecalciferol [Vitamin D3 (125 Mcg = 5000 Iu)] 125 mcg PO DAILY Omeprazole Magnesium [PriLOSEC OTC] 20 mg PO DAILY PRN PRN Reason: Heartburn Ascorbic Acid [Vitamin C] 1,000 mg PO BID Zinc Gluconate [Zinc] 50 mg PO DAILY Discharge Medication List Ascorbic Acid [Vitamin C] 1,000 mg PO BID 09/24/22 [History] Cholecalciferol [Vitamin D3 (125 Mcg = 5000 Iu)] 125 mcg PO DAILY 09/24/22 [History] Ezetimibe [Zetia] 10 mg PO DAILY 09/24/22 [History] Omeprazole Magnesium [PriLOSEC OTC] 20 mg PO DAILY PRN 09/24/22 [History] Zinc Gluconate [Zinc] 50 mg PO DAILY 09/24/22 [History] Cyclobenzaprine [Flexeril] 5 mg PO TID PRN #45 tablet 09/30/22 [Rx] Gabapentin 300 mg PO TID #90 cap 09/30/22 [Rx] HYDROcodone/APAP 5-325MG [Mooreland 5-325] 1 - 2 tab PO Q6HR PRN #56 tab 09/30/22 [Rx] Sennosides/Docusate Sodium [Senna Plus 8.6-50 mg Tablet] 1 each PO DAILY PRN #20 tablet 09/30/22 [Rx] Sulfamethox-Tmp 800-160Mg [Bactrim DS 800-160 mg] 1 tab PO Q12HR 3 Days #6 tab 09/30/22 [Rx] Follow up Appointment(s)/Referral(s): [facility], [NON-STAFF] - 1 Week Jayy Loera MD [Primary Care Provider] - 1 Week Renzo Rios DO [Doctor of Osteopathic Medicine] - 2 Weeks Activity/Diet/Wound Care/Special Instructions: Spine Discharge and Recovery Instructions Date of Surgery: 09/29/2022 Diagnosis: Lumbar stenosis, spondylolisthesis L4 onto L5 Procedure: L4-L5 posterior lateral interbody fusion Medications: See medication list All medication refills should be obtained through your primary care doctor or your clinic spine surgeon. Please discuss prescription refills at your follow up appointment. Do not call the hospital for medication refills. Dressing: Leave your dressing in place for a total of 5 days post operatively. Then you may remove your dressing and leave open to air. Keep the area clean and if not able to keep area clean, then cover with sterile gauze and tape. Showering: You may shower 3 days after your procedure allowing soap and water to run over incision. Do not scrub. Do not soak. Blot dry. Follow up: Please confirm a follow up appointment with your surgeon 3 weeks post operatively. Please make an appointment to follow up with your PCP in 1-2 weeks after surgery for evaluation 3 phase, 3-week plan POST OP WEEKS 1-3 1. Lifting/carrying/pushing/pulling limited to less than 5 pounds. 2. Do not sit for longer than 15 minutes at one time. Get up and walk around. Prolonged sitting is NOT advised. If you lay down, see if you can tolerate laying down on you front (belly side) 3. Walk for periods of 15 minutes = 1 mile but no longer; do it multiple times times each day. 4. Ice your low back after activity. POST OP WEEKS 3-6 1. Lifting limited to less than 20 pounds. 2. Do not sit for longer than 30 minutes at a time. Frequently change positions. Use a sit-to stand workstation or take frequent breaks from sitting if you have returned to work. 3. Walk for 30 minutes each day. If possible, do these three or more times a day POST OP WEEKS 6+ At your 6-week appointment we will give you a physical therapy referral to focus on a core stabilization and strengthening program. You should also work on leg & buttock strengthening, hamstring & quadriceps stretching, and continue a low impact aerobic activity program such as swimming, walking, or riding a stationary bicycle. During the initial 6 weeks after your surgery, you are at the highest risk of re-injuring your spine. You should generally avoid BLTs (bending, lifting and twisting combination motions) and follow the above guidelines to reduce the chance of reinjury. You can anticipate post op appointments in our office at approximately 3 weeks and 6 weeks after your surgery. INCISION CARE: If your incision is not draining you do NOT need to cover it with a dressing. Keep your incision clean, dry and intact. In most cases, we apply skin glue, carlos or sutures to the incision at the time of surgery. This will be like a crust or have the appearance of a scab and will fall off in time on its own. The stitches or carlos need to be removed at 3 weeks post op appointment. You may begin to shower 3 days after surgery (this allows the glue to martinez well). However, please avoid scrubbing the incision site or peeling off any of the skin glue. This will ensure optimal healing of your incision. Also, during this time avoid soaking the incision area in water - this includes swimming pools, hot tubs or baths. No ointments, lotions or oils on the incision until your surgeon allows. Leave carlos, sutures or glue in place. Neurological dysfunction that comes on suddenly can also be a sign of a stroke. Below some common symptoms of a stroke are listed: B - balance difficulty such as sudden onset walking or leaning to one side - N EW E - eye problem such as sudden double vision or trouble seeing on one side - NEW F - Facial weakness or numbness on one side - NEW A - Arm or leg weakness or numbness on one side - NEW S - Slurred speech or difficulty with word finding - NEW T - Time is BRAIN! Call 911 as soon as you recognize these symptoms Diet: Consume a regular diet rich in vegetables and lean protein such as chicken or fish. You should consume in a ratio of approximately 20% fats|40% carbohydrates|40%protein. Vegetables, sweet potatoes, brown rice or quinoa are examples of good carbohydrates. Chips, white bread, cookies and sweets/sugar are examples of bad carbohydrates. Limit your bad carbs, go wild with good carbs. "Life's Simple 7" Guidelines as per [place] [employer] These will help you reclaim your life after surgery and technician helper instrument in your recovery, keeping in mind your restrictions. (1) Get Active. Physical activity can help people lose weight, control high blood pressure and cholesterol, feel emotionally better, and sleep better. (2) Control Cholesterol. Avoid a diet high in saturated fat, trans fat, & cholesterol. Limit whole milk & cream, ice cream, butter, egg yolks, processed meats (like sausage and hot dogs), and fatty meats. Choose healthy foods that are low in saturated fat, trans fat and cholesterol which include: Fruits and vegetables, fiber rich grain products (like whole grain pasta and brown rice), lean meat such as chicken, fish, nuts, seeds, and legumes. (3) Eat Better. Eat small portions. Shop at the grocery with a list and do not stray from it. Tips for a healthy diet include: Limit sodium intake to less than 1500mg daily, avoid prepackaged, processed, and fast foods, choose a diet rich in fruits, vegetables, and whole grain, high fiber foods, and limit saturated & cholesterol in your diet. (4) Manage Blood Pressure. If you have high blood pressure, you should have a cuff at home so that you can check your blood pressure regularly. Be sure you have a good cuff. An arm one is generally better than a wrist one. Bring the cuff to a doctor's appointment to validate that the measurements that your cuff are taking are accurate. Take your blood pressure twice daily when you are sitting down and relaxing. Record the numbers in a log and bring this log with you to your doctors' appointments. (5) Lose Weight if your BMI is above 25. A healthy BMI is between 19-25. To calculate Your BMI, you may use a Standard BMI Calculator on the NIH BMI website: <www.nhlbi.nih.gov/guidelines/obesity/BMI/bmicalc.htm>. Weigh oneself daily. If you are overweight, set a goal to lose weight. A pound a week loss if needed is a good target. (6) Reduce Blood Sugar. Limit foods and liquids with "added sugars." (Added sugars include sucrose, fructose, glucose, maltose, dextrose, high fructose corn syrup, corn syrup, concentrated fruit juice and honey). (7) Stop Smoking. If you smoke, quitting smoking is one of the best things that you can do for your health. Smoking increases your risk of heart attack, stroke, and peripheral vascular disease, which is a build-up of plaque in your arteries. Please discard all the cigarettes and lighters in your house. Have a plan for what you will do when you have the urge to smoke. Direct and second- hand smoke shortens your life as well as the lives of your family, friends and others around you. For your health and the health of those around you, please consider quitting! Proper Bending Body Mechanics: Maintain a wide stance with one foot slightly in front of the other. Keep your back straight. Bend utilizing the strength in your hips and knees. Do not bend at the waist. Maintain the lifted object at your waist-level close to your body. Avoid lifting weight that causes immediately pain or pain anywhere in the body afterwards. Smoking/Nicotine If there was ever one thing that you could do to increase your overall health, decrease your risk of cardiovascular problems by about 39% the second you make the choice, it is to STOP SMOKING. Your body's most instant gratification is the second you stop smoking. We have all heard the studies, read the articles but it is true, smoking is extremely bad for your overall health, and moreover it is detrimental to your bone health. Nicotine, IN ANY FORM, kills bone cells, prevents your body from healing fractures, and significantly prolongs healing after surgery. In spine surgery specifically, it increases your risk of not healing your bones to create a fusion and increases your risk of having a revision surgery due to this up to 60%. I know it is hard. I know it feels impossible. But there are ways. Take control of your life. We are here to help you through it. And when you are ready, ask us and we can direct you to help if you desire. Use the START Plan to Quit Smoking (please visit the Helpguide.org website listed below for more information): S = Set a quit date. Choose a date within the next 2 weeks, so you have enough time to prepare without losing your motivation to quit. If you mainly smoke at work, quit on the weekend, so you have a few days to adjust to the change. T = Tell family, friends, and co-workers that you plan to quit. Let your friends and family in on your plan to quit smoking and tell them you need their support and encouragement to stop. Look for a quit kelvin who wants to stop smoking as well. You can help each other get through the rough times. A = Anticipate and plan for the challenges you'll face while quitting. Most people who begin smoking again do so within the first 3 months. You can help yourself make it through by preparing ahead for common challenges, such as nicotine withdrawal and cigarette cravings. R = Remove cigarettes and other tobacco products from your home, car, and work. Throw away all your cigarettes (no emergency pack!), lighters, ashtrays, and matches. Wash your clothes and freshen up anything that smells like smoke. Shampoo your car, clean your drapes and carpet, and steam your furniture. T = Talk to your doctor about getting help to quit. Your doctor can prescribe medication to help with withdrawal and suggest other alternatives. If you can't see a doctor, you can get many products over the counter at your local pharmacy or grocery store, including the nicotine patch, nicotine lozenges, and nicotine gum. Resources for Quitting Smoking: <https://www.[place].gov/documents/[facility]/Quit_Tobacco_Resources_for_patients_313 480_7.pdf> Supplementation: Take recommended dosages of Vitamin D and Calcium to help fortify your bones and help them to heal. See your health maintenance packet for dosages and recommended levels. DVT/VTE prophylaxis: You will be given compression stockings from the hospital. Wear these daily for the first two weeks after surgery. You may take them off at night. You may be prescribed a medication to help thin your blood. Take this as directed. If you are not prescribed this medication, early and frequent ambulation has been shown to be the best prophylaxis to deep vein thrombosis and sequelae related to this event. Discharge Disposition: HOME WITH HOME HEALTH SERVICES
[2022-10-01 09:47] LABS: Basophils % (A) 0 %; Eosinophils % (A) 0 %; HGB 12.3 gm/dL (13.0-17.5); Lymphocytes # (A) 1.5 k/uL (1.0-4.8); Lymphocytes % (A) 11 %; MCH 28.9 pg (25.0-35.0); MCHC 33.2 g/dL (31.0-37.0); MCV 87.1 fL (80.0-100.0); Mean Platelet Volume 6.6; Monocytes # (A) 0.7 k/uL (0-1.0); Monocytes % (A) 5 %; Neutrophils # (A) 11.4 k/uL (1.3-7.7); Neutrophils % (A) 83 %; Platelet Count 232 k/uL (150-450); RBC 4.25 m/uL (4.30-5.90); RDW 12.9 % (11.5-15.5); WBC 13.8 k/uL (3.8-10.6)
[2022-10-01 09:48] LABS: African American GFR (CKD) >90 (>60 ml/min/1.73 sqM); Anion Gap 3 mmol/L; Blood Urea Nitrogen 17 mg/dL (9-20); Calcium 8.3 mg/dL (8.4-10.2); Carbon Dioxide 33 mmol/L (22-30); Chloride 97 mmol/L (98-107); Glucose 135 mg/dL (74-99); Non-African American GFR(CKD) >90 (>60 ml/min/1.73 sqM); Sodium 133 mmol/L (137-145)
--- NOTE | 2022-10-06 10:34 | P.OP ---
Date of Procedure: 09/29/22 Preoperative Diagnosis: 1. L4-5 grade I spondylolisthesis 2. L4-5 spondylosis with severe stenosis and facet cysts 3. Neurogenic claudication 4. Mechanical low back pain Postoperative Diagnosis: 1. L4-5 grade I spondylolisthesis 2. L4-5 spondylosis with severe stenosis and facet cysts 3. Neurogenic claudication 4. Mechanical low back pain Procedure(s) Performed: 1. L4-5 posteriolateral and interbody fusion (50158) 2. Instrumentation L4-5 (96515) 3. Insertion of biomechanical device (05361) 4. Bilateral laminectomy, complete facetecomy and foraminotomy beyond that for cage placement and for deformity correction (11862) 5. Use of [employer] navigation for screw placement (44205) Use of IONM Implants: -Globus Creo Screw and kishan system -Amplfiy Dual X -MagnatOs, Autograft, allograft, allocel Anesthesia: GETA Surgeon: Renzo Rios Tension Machine Operator #1: Saulo Rodriguez (Was present and assisted with all aspects of the case from positioning to dressing placement) Estimated Blood Loss (ml): 350 IV fluids (ml): 2,200 Urine output (ml): 400 Pathology: other (L4-5 cysts x2) Condition: stable Disposition: PACU Indications for Procedure: Mr. Mejia is presenting for evaluation of low back pain. It was my pleasure to have seen and examined Mr. Mejia. In our visit today we have had a chance to go over subjective complaints, phys ical examination findings and treatments including the natural course history without intervention and various interventional options. The patients imaging demonstrates: XRay (multiview) taken on 05/25/22 obtained at [facility] of Lumbar,Spine and Pelvis: Images reviewed with the patient. These demonstrate L4-5 Grade I mobile spondylolisthesis with about 3 mm of translation of F/E films. There is pars elongation as well as facet arthropathy from L4-S1. There is well maintained disc height at L5S1. There are no fractures noted. There is spondylosis at L1-2 with disc height loss. There are no lesions noted. AP pelvis shows level congruent pelvis w/o fracture MRI scan from 02/23/2022 obtained at [facility] of Lumbar Spine: Images reviewed with the patient demonstrate again L4-5 grade I spondylolisthesis that is mobile. There is large disc bulge associated causing severe b/l foraminal stenosis there is a facet cyst posteriorly along with hypertrophy of ligamentum that contribute to severe central stenosis as well. There are boggy facets at L4-5. L5-S1 shows some disc dessication that is moderate. There is minimal stenosis at this level. There is spondylosis from L1-2 with severe disc collapse and likely old HNP that is now a disc osteophyte complex causing mild stenotic features. No fracture. No lesions. Modic endplate changes at levels described. On physical exam, Mr. Mejia demonstrates severely restricted lumbar ROM with bilateral lower extremity radiculopathy. Furthermore he does demonstrate bilateral lower extremity L4-L5 dermatomal deficit. Overall functional and gait testing is limited due to the severity of his symptoms. I have explained to the patient that as their condition progresses it will cause further neurological deficits and eventual paralysis. Based on the patients imaging, physical exam, and the rapid progression and disabling nature of their symptoms, at this time I recommend surgery in the form of a: lumbar (L4-L5) Decompression and Fusion . I discussed the risk and benefits of this procedure at length with Mr. Mejia. The patient agreed to considered pursuing the procedure abovementioned. Prior to surgery, she should follow up with her PCP (Cardio, ID, IM etc) for clearance. Questions were invited and answered, and the patient wishes to proceed as outlined below. Currently, I am recommendin.lumbar (L4-L5) Decompression and Fusion Description of Procedure: The patient was seen and examined in the preoperative area.All preoperative protocols were followed.Informed consent was obtained, risks and benefits of the procedure were discussed at length.Risks including bleeding infection damage to the surrounding tissue and risk of re-operation were discussed with t he patient.Risk of anesthesia up to and including was discussed with the patient.These are outlined in the risk review.They were willing to accept these risks and all the risks of surgery.The patient was given a weight-based dose of antibiotics in the form of 2 g Ancef.The patient was seen and evaluated by the anesthesia team who deemed them fit for surgery. The site was marked, the patient was willing to proceed with the procedure. The patient was transferred to the operative suite by the Department of anesthesia. They were then drifted off to sleep by the department anesthesia and GETA was performed. The patient tolerated this well. Brunner catheter was placed by nursing staff, a-traumatically. Once confirmation of lines and ventilation the patient was transferred to a prone Ousmane table very carefully. All bony prominences including wrists, elbows, axilla, chest, hips, and thighs, and feet were padded very well. Special attention was paid to the genitalia, and these were padded accordingly. SCDs were placed on bilateral lower extremities and were connected. Arms were well padded and placed on arm boards up and out in the 90/90 position. Once in position, again we confirmed good ventilation capabilities and that lines were running appropriately. The patients Lumbar spine was then exposed. 1010s were placed outlining the incision site. Standard alcohol was used to clean the incision site and allowed to dry. C-arm was used to needle localize the pedicles at L4-S1 and bio-viktor the patient and confirm level for incision which was marked with a skin marker. Operative briefing was performed with all teams and everyone in agreement to proceed. The patient was then prepped and draped in a normal sterile fashion. Timeout was then performed, and all parties agreed with the procedure to be performed. Midline skin incision was made over the previously bio-marked area and dissection taken down over the SP of L3-S1. L4-S1 was taken out over facet joints and TPs and a penfield 4 used to viktor the L4 pedicle. Lateral image used to confirm levels. Once confirmed, screws were proceeded to be placed b/l at pedicles from L4-S1 using [employer] Navigation. An SP clamp was used, 3D C arm spin obtained and confirmed to be accurate. Once this was confirmed screws were placed using a navigated pato, navigated awl-tap and navigated production truck driver. Once screws were placed they were confirmed to be in good position using AP and Lateral fluoroscopy. The wound was then irrigated. Screws were tested and all tested above 20 mA. We then proceeded to decompression and cage placement. Attention was then turned to inter-body fusion at L4-5. Bilateral laminectomy, complete facetectomy and foraminotomy performed at L4-5 using high speed pato and Kerrison rongure. The ligamentum was removed and dural sac decompressed. Exiting and traversing roots visualized and decompressed. Neural elements were then protected, and disc space accessed with an osteotome. Sequential shaving then done under lateral imaging and complete discectomy performed using tamika, pituitary and curette. Once good bleeding endplates accomplished and good height buddhism with trials, a combination of autograft, allograft and synthetic placed anterior in the disc space. The cage was then selected and impacted into place under lateral imaging. The cage was then expanded restoring height, lordosis and alignment. The cage was backfilled with bone graft through a funnel. The frame bender removed and area inspected. Good cage placement, stable cage and no injuries. Area was irrigated copiously, and meticulous hemostasis achieved. The tubular retractor was then removed under direct visualization. The wound and disc spaces irrigated and meticulous hemostasis achieved. Rods were then sized and selected and placed into S1 screws b/l. Set screws locked these in place and then sequentially reduced into L4 and L5 b/l for reduction of listhesis. This was accomplished. Set screws were then all placed and final tightened. A cross link was selected and placed and final tightened. TPs were then decorticated with high speed pato. The wound was the irrigated with 3L acne irrigation, 3L gentamicin irrigation and 3L NSS. Surgical was placed over the dura. Autograft and MagnatOs then placed in the posteriolateral gutters and impacted into place. Deep drain placed and secured to the skin. Final images confirmed good placement of hardware and good reduction of listhesis as well as buddhism of height and lordosis. Facia was then closed with #1 PDS. Deep subq closed with 0 Vicryl. Superficial subq closed with 2-0 Vicryl and skin with carlos. Wound edges approximated very well. Wound was then cleaned with alcohol and dried. Wounds dressed with Optifoam dressings. The patient was then transferred off the table back to their hospital bed a- traumatically.They were extubated by the department of anesthesia.They were then transferred to PACU in stable condition having tolerated the procedure with no complications.
== END 2022-10-01 10:42 | disposition home health service (06) | DRG 455 ==
LOC: OR 10:54 → 4SSUR 17:33 → OR 10-01 07:57
PROVIDERS: ADMIT Orthopaedic Surgery; ATTEND Orthopaedic Surgery
PROC: 0SG0071 Fusion of Lumbar Vertebral Joint with Autologous Tissue Substitute, Posterior Approach, Posterior Column, Open Approach (ICD-10-PCS; 2022-09-29)
PROC: 01NB0ZZ Release Lumbar Nerve, Open Approach (ICD-10-PCS; 2022-09-29)
PROC: 0ST20ZZ Resection of Lumbar Vertebral Disc, Open Approach (ICD-10-PCS; 2022-09-29)
PROC: 00NY0ZZ Release Lumbar Spinal Cord, Open Approach (ICD-10-PCS; 2022-09-29)
PROC: 4A11X4G Monitoring of Peripheral Nervous Electrical Activity, Intraoperative, External Approach (ICD-10-PCS; 2022-09-29)
PROC: 8E0WXBG Computer Assisted Procedure of Trunk Region, With Computerized Tomography (ICD-10-PCS; 2022-09-29)
PROC: 0SG00AJ Fusion of Lumbar Vertebral Joint with Interbody Fusion Device, Posterior Approach, Anterior Column, Open Approach (ICD-10-PCS; principal; 2022-09-29 14:00)
DX: M43.16 Spondylolisthesis, lumbar region (principal); M25.78 Osteophyte, vertebrae; M48.062 Spinal stenosis, lumbar region with neurogenic claudication; M47.27 Other spondylosis with radiculopathy, lumbosacral region; Z79.899 Other long term (current) drug therapy; Z87.891 Personal history of nicotine dependence; Z98.1 Arthrodesis status; Z88.8 Allergy status to other drugs, medicaments and biological substances; Z88.0 Allergy status to penicillin
CPT/HCPCS: 72100; 72131; 80048; 85025; 86850; 86900; 86901; 88305; 94760